=== PATIENT | male | born 1995 | race Caucasian/White ===

== ENCOUNTER 2017-06-07 19:59 | Inpatient (IN) | payer OTHER ==
[~2017-06-07] VITALS: Ht 188 cm; Wt 82.6 kg
[2017-06-07] MEDS ORDERED: VANCOMYCIN IV 1,500 MG in SODIUM CHLORIDE 0.9% 500ML 500 ML IV STA (20:28)
[2017-06-07] MEDS ORDERED: VANCOMYCIN CONSULT ACTIVE PRN ×2 (20:30→22:15)
--- NOTE | 2017-06-07 21:02 | DIAGNOSTIC IMAGING REPORT ---
R TIBIA/FIBULA 2 VIEWS ROUTINE HISTORY: 22 years-old Male RIGHT, LOWER LEG CELLULITIS acute swelling of the right lower leg COMPARISON: None available TECHNIQUE: 2 views of the right tibia and fibula. FINDINGS: There is mild to moderate soft tissue swelling throughout the right lower leg. No opaque foreign body. The bones appear intact without acute fracture, dislocation or erosive changes. No osteochondral defect of the talar dome. No large knee joint effusion. IMPRESSION: Mild to moderate soft tissue swelling of the right lower leg without acute bony abnormality or opaque foreign body. The above report was generated using voice recognition software. It may contain grammatical, syntax or spelling errors. Electronically signed by: Jamie Armijo M.D. 06/07/2017 9:00 PM Dictated Date/Time: 06/07/2017 8:59 PM
[2017-06-07] MEDS ORDERED: SODIUM CHLORIDE 0.9% 1000ML 1,000 ML IV STA (21:12)
[2017-06-07 21:14] LABS: INR 1.1 (0.9-1.1); PTT PATIENT 29.7 SECONDS (21.0-31.0)
[2017-06-07 21:17] LABS: BASO % 0.2 %; BASO ABS # 0.02 K/uL (0-0.2); EOS % 0.6 %; EOS ABS # 0.08 K/uL (0-0.5); HEMATOCRIT 41.7 % (42-52); HEMOGLOBIN 14.9 g/dL (14.0-18.0); IG# 0.12 K/uL (0.00-0.02); LYMPH % 8.3 %; LYMPH ABS # 1.07 K/uL (1.2-3.4); MEAN CELL VOLUME 89.5 fL (80-100); MEAN CORPUSCULAR HGB CONC 35.7 g/dl (32-36); MONO % 9.4 %; NEUT % 80.6 %; NEUT ABS # 10.34 K/uL (1.4-6.5); PLATELET COUNT 153 K/uL (130-400); RED CELL DISTRIBUTION WIDTH CV 12.3 % (11.5-14.5); RED CELL DISTRIBUTION WIDTH SD 39.8 fL (36.4-46.3); WHITE BLOOD COUNT 12.83 K/uL (4.8-10.8)
[2017-06-07 21:20] LABS: CALCIUM 8.9 mg/dl (8.5-10.1); CREATININE 1.23 mg/dl (0.60-1.40); POTASSIUM 4.1 mmol/L (3.5-5.1)
--- NOTE | 2017-06-07 21:57 | EMERGENCY ROOM VISIT NOTE ---
ED Visit Note First contact with patient: 20:05 CHIEF COMPLAINT: Infection of the right leg 4 days HISTORY OF PRESENT ILLNESS: Patient is an otherwise healthy 22-year-old white male, [employer] student, who presents the emergency department for evaluation of right lower leg pain, redness and swelling 3-4 days. Patient relates that he was in [place] for spring. He states that about 4 days ago, he accidentally stepped on some glass with his right foot. He had some pain with weightbearing and was seen by a medical provider who removed a small piece of glass from the area and cleansed the wound. Over the next 1-2 days, he noted worsening pain, swelling and redness initially in the right ankle, which progressively spread up the right lower leg. He was seen by a physician yesterday around 1100 and given a shot of ceftriaxone 1 g and what I suspect is dexamethasone, according to his paperwork. He reports that he did have a fever when he was seen yesterday, temperature was 102F orally. He has not been able to recheck his temperature as he has been traveling, he does report that he has been taking ibuprofen fairly regularly. He returned to the doctor earlier today around 0300 prior to leaving [place] and received an additional ceftriaxone injection. He was not provided with any oral antibiotics. He notes that the leg is worsening, not getting any better. He is unable to bear weight due to pain. He is not aware of any injury to the leg. He reports that he was swimming in pools only, and did not swim in the ocean. He denies any prior history of skin infections or abscesses. The patient denies any personal or family history of DVT or PE. REVIEW OF SYSTEMS: Review of systems as per HPI. All other systems reviewed were negative. 10 systems reviewed. PMH: Electronic medical records are reviewed and summarized as above/below. See Problem List. The patient is otherwise healthy without any chronic medical problems. His tetanus is up-to-date. SOCIAL HISTORY: Patient is a college student originally from [place] who lives in a fraternity house. Positive tobacco and alcohol, does not specify the amount. PHYSICAL EXAM: Vital Signs: Reviewed Nurse's notes. GENERAL: Patient is a well-appearing 22-year-old white male who is awake and alert and in no acute distress. LUNGS: Clear to auscultation and breath sounds equal, no wheezes, rales, or rhonchi. HEART: Regular rate and rhythm without murmurs, ectopy, gallops, or rubs. NEUROLOGICAL: Alert and cooperative. Sensory and motor functions grossly intact. MUSCULOSKELETAL: Examination of the right lower extremity show no obvious knee joint effusion. There is soft tissue swelling around the ankle, but no intra- articular effusion palpable. Knee and ankle range of motion are full. Knee is nontender to palpation. Ankle is tender only medially. Muscle bellies of the calf are soft. The right lower extremity is neurovascularly intact. INTEGUMENTARY: Examination of the right lower extremity, specifically the pretibial area note the skin to be intact, but markedly swollen, tender, erythematous and warm to the touch. The anterior tib-fib region is involved, the posterior calf is spared at this time, but is slightly tender medially. Area involved extends from the ankle to the tibial tuberosity. The knee joint is spared. There is no lymphangitic streaking appreciated into the thigh, but there is some tenderness medially. No lymphadenopathy appreciated. Examination of the plantar aspect of the foot show a callused over puncture wound at the base of the third toe, which is nontender and nonerythematous. EMERGENCY DEPARTMENT COURSE: The patient was seen and examined as above. As stated in the HPI he did receive 2 separate doses of 1 g ceftriaxone while abroad. The patient has no records available for review at our facility. He presents the emergency department with a fairly significant cellulitis of the right lower extremity. IV lock was initiated and laboratory studies were collected. CBC with differential, sed rate, CRP, coags, BMP, blood cultures 2 and [id number] lactic acid were drawn. Tib-fib x-ray was obtained. Ultrasound of the right lower extremity was performed to assess for DVT. The patient was given vancomycin 1500 mg IV empirically. He was hydrated with a liter of normal saline solution. Patient history and presentation were reviewed with attending physician who agreed with the ED workup. Laboratory studies noted a white count of 12,800, with left shift and bandemia. Sed rate and CRP are elevated at 42 and 17.6 respectively. Electrolytes are without correctable abnormality. Renal function is normal. His lactic acid is elevated at 2.5. X-rays of the right tib-fib are negative for acute fracture or bony abnormality. Ultrasound of the right lower extremity was negative for DVT. Reactive lymph nodes noted in the right groin. Blood cultures are pending. Patient was reviewed with the [facility] Hospitalist Service for further care and evaluation. Admission/observation is warranted as he has failed outpatient management of the cellulitis of the right lower extremity. Differential diagnoses also entertained included fracture, sprain, contusion, DVT, superficial thrombophlebitis, abscess, osteomyelitis, necrotizing fasciitis , among others. He is otherwise clinically well-appearing and does not appear septic at this time. Medication reconciliation: I attest that I have personally reviewed the patient' s current medication list. Blood pressure screening : Patient was found to have normal blood pressure on screening and does not require follow-up. DIAGNOSTIC IMAGING: R TIBIA/FIBULA 2 VIEWS ROUTINE HISTORY: 22 years-old Male RIGHT, LOWER LEG CELLULITIS acute swelling of the right lower leg COMPARISON: None available TECHNIQUE: 2 views of the right tibia and fibula. FINDINGS: There is mild to moderate soft tissue swelling throughout the right lower leg. No opaque foreign body. The bones appear intact without acute fracture, dislocation or erosive changes. No osteochondral defect of the talar dome. No large knee joint effusion. IMPRESSION: Mild to moderate soft tissue swelling of the right lower leg without acute bony abnormality or opaque foreign body. R VENOUS DOPP LOWER EXT UNILAT HISTORY: 22 years-old Male RIGHT, EVAL DVT acute right lower extremity pain and swelling COMPARISON: None available TECHNIQUE: Multiple real-time sonographic lower extremity venous structures were obtained assessing grayscale appearance, color and spectral flow FINDINGS: Mildly prominent and enlarged lymph nodes of the right inguinal region are seen, largest of which measure up to 1.1 cm in short axis. There is normal flow, phasicity, compressibility and augmentation of the right lower extremity deep venous structures. Moderate subcutaneous edema about the right calf. IMPRESSION: 1. No sonographic evidence of deep venous thrombosis. 2. Mildly enlarged 1.1 cm right inguinal lymph node suggests reactive etiology. Problem List Surgical Problems: (1) History of nasal surgery Status: Resolved (2) Hx of tonsillectomy Status: Resolved Current/Historical Medications No Active Prescriptions or Reported Meds Allergies Coded Allergies: No Known Allergies (Unverified , 06/07/17) Vital Signs Date Time Temp Pulse Resp B/P (MAP) Pulse Ox O2 Delivery O2 Flow Rate FiO2 06/07/17 21:51 87 18 141/74 100 Room Air 06/07/17 20:03 36.7 102 18 124/76 99 Room Air Laboratory Results 06/07/17 20:36 Red Blood Count 4.66, Mean Corpuscular Volume 89.5, Mean Corpuscular Hemoglobin 32.0, Mean Corpuscular Hemoglobin Concent 35.7, Mean Platelet Volume 12.0, Neutrophils (%) (Auto) 80.6, Lymphocytes (%) (Auto) 8.3, Monocytes (%) (Auto) 9.4, Eosinophils (%) (Auto) 0.6, Basophils (%) (Auto) 0.2, Neutrophils # (Auto) 10.34, Lymphocytes # (Auto) 1.07, Monocytes # (Auto) 1.20, Eosinophils # (Auto) 0.08, Basophils # (Auto) 0.02 06/07/17 20:36 Test 06/07/17 20:36 06/07/17 20:58 White Blood Count 12.83 K/uL (4.8-10.8) Red Blood Count 4.66 M/uL (4.7-6.1) Hemoglobin 14.9 g/dL (14.0-18.0) Hematocrit 41.7 % (42-52) Mean Corpuscular Volume 89.5 fL (80-100) Mean Corpuscular Hemoglobin 32.0 pg (25-34) Mean Corpuscular Hemoglobin Concent 35.7 g/dl (32-36) Platelet Count 153 K/uL (130-400) Mean Platelet Volume 12.0 fL (7.4-10.4) Neutrophils (%) (Auto) 80.6 % Lymphocytes (%) (Auto) 8.3 % Monocytes (%) (Auto) 9.4 % Eosinophils (%) (Auto) 0.6 % Basophils (%) (Auto) 0.2 % Neutrophils # (Auto) 10.34 K/uL (1.4-6.5) Lymphocytes # (Auto) 1.07 K/uL (1.2-3.4) Monocytes # (Auto) 1.20 K/uL (0.11-0.59) Eosinophils # (Auto) 0.08 K/uL (0-0.5) Basophils # (Auto) 0.02 K/uL (0-0.2) RDW Standard Deviation 39.8 fL (36.4-46.3) RDW Coefficient of Variation 12.3 % (11.5-14.5) Immature Granulocyte % (Auto) 0.9 % Immature Granulocyte # (Auto) 0.12 K/uL (0.00-0.02) Erythrocyte Sedimentation Rate 42 mm/hr (0-14) Prothrombin Time 11.3 SECONDS (9.0-12.0) Prothromb Time International Ratio 1.1 (0.9-1.1) Activated Partial Thromboplast Time 29.7 SECONDS (21.0-31.0) Partial Thromboplastin Ratio 1.1 Anion Gap 6.0 mmol/L (3-11) Est Creatinine Clear Calc Drug Dose 101.9 ml/min Estimated GFR () 97.3 Estimated GFR (Non- 84.0 BUN/Creatinine Ratio 21.0 (10-20) Calcium Level 8.9 mg/dl (8.5-10.1) C-Reactive Protein 17.60 mg/dl (0-0.29) Bedside Lactic Acid Venous 2.51 mmol/L (0.90-1.70) Medications Administered Medications (Trade) Dose Ordered Sig/Robson Route Start Time Stop Time Status Last Admin Dose Admin Vancomycin HCl 1500 mg/Sodium Chloride 530 ml @ 200 mls/hr ONE STAT IV 06/07/17 20:28 06/07/17 23:06 06/07/17 20:56 200 MLS/HR Sodium Chloride 1,000 ml @ 999 mls/hr Q1H1M STAT IV 06/07/17 21:12 06/07/17 22:12 DC 06/07/17 21:50 999 MLS/HR Departure Information Impression Primary Impression: Cellulitis of right lower extremity Additional Impression: Failure of outpatient treatment Dispostion Being Evaluated By Hospitalist Prescriptions No Active Prescriptions or Reported Meds Patient Instructions My [facility] Problem Qualifiers
--- NOTE | 2017-06-07 21:59 | DIAGNOSTIC IMAGING REPORT ---
R VENOUS DOPP LOWER EXT UNILAT HISTORY: 22 years-old Male RIGHT, EVAL DVT acute right lower extremity pain and swelling COMPARISON: None available TECHNIQUE: Multiple real-time sonographic lower extremity venous structures were obtained assessing grayscale appearance, color and spectral flow FINDINGS: Mildly prominent and enlarged lymph nodes of the right inguinal region are seen, largest of which measure up to 1.1 cm in short axis. There is normal flow, phasicity, compressibility and augmentation of the right lower extremity deep venous structures. Moderate subcutaneous edema about the right calf. IMPRESSION: 1. No sonographic evidence of deep venous thrombosis. 2. Mildly enlarged 1.1 cm right inguinal lymph node suggests reactive etiology. The above report was generated using voice recognition software. It may contain grammatical, syntax or spelling errors. Electronically signed by: Jamie Armijo M.D. 06/07/2017 9:57 PM Dictated Date/Time: 06/07/2017 9:56 PM
[2017-06-07] MEDS ORDERED: ALUMINUM/MAGNESIUM/SIMETH (MAALOX MAX) 30 ML UDC PO PRN (22:15)
[2017-06-07] MEDS ORDERED: MAGNESIUM HYDROXIDE SUSP 30 ML UDC PO PRN (22:15)
[2017-06-07] MEDS ORDERED: ZOLPIDEM TARTRATE 5 MG TAB PO PRN (22:15)
[2017-06-07] MEDS ORDERED: ONDANSETRON INJ 2 MG/ML 2 ML VIAL IV PRN (22:15)
--- NOTE | 2017-06-07 22:57 | History and Physical ---
History & Physical Date & Time of Service: Jun 07, 2017 at 22:50 Chief Complaint: Infection In R Foot/Leg Primary Care Physician: [facility] History of Present Illness Source: patient 22 years old man with no past medical history was in a trip to [place]. 5 days ago he stepped on glass with his right foot, he said that they remove the glass in [place]. 3 days later he developed fever and swelling and redness in his right lower extremity anterior surface of the genitalia. He had associated fever and fatigue. He denied any pus coming out of his foot but when I was in the room on my exam I was able to squeeze pus out of the foot and consent cultures. Wound appears to be superficial. But there is bright red erythema on the right lower extremity. Patient drinks socially denies any smoking. Denies any underlying diabetes. Social History Smoking Status: Current Some Day Smoker Allergies Coded Allergies: No Known Allergies (Unverified , 06/07/17) Home Medications No Active Prescriptions or Reported Meds Review of Systems Review of system Constitutional: Positive for fever / no chills / no sweats / no weakness / no fatigue Eyes: no blurring of vision / no eye pain / no discharge / no redness ENT: no hearing loss / no epistaxis /no swallowing problems Respiratory: no cough / no wheezing / no SOB / no hemoptysis Cardiovascular: no Chest pain / no lower extremity edema / no palpitation Abdomen: no pain / no nausea / no vomiting / no constipation Musculoskeletal: Right lower extremity pain and swelling, erythema in the anterior border of right chin Genitourinary: no dysuria / no incontinence / no urinary retention Neurologic: no focal weakness / no numbness/tingling / no ataxia Psychiatric: no depression symptoms / no anxiety / no insomnia Endocrine: no excessive thirst / no excessive urination Hematologic: no abnormal bleeding / no bruising / no LN swelling Skin: No rash / no pallor Physical Exam Vital Signs Date Time Temp Pulse Resp B/P (MAP) Pulse Ox O2 Delivery O2 Flow Rate FiO2 06/07/17 21:51 87 18 141/74 100 Room Air 06/07/17 20:03 36.7 102 18 124/76 99 Room Air Physical examination General patient appears to be comfortable, not in acute distress HEENT: Atraumatic , normocephalic /no jaundice /no pallor /anicteric /no dry mucous membrane /normal external ear inspection Neck: Supple /no swelling /central trach Heart: S1/S2 normal/regular rate and rhythm/no gallop /no rub /no murmur Lungs: Clear to auscultation bilaterally/normal chest with expansion/no rhonchi/ no rales/no wheezing/no use of accessory muscles of respiration Abdomen: Soft/nontender/no guarding/no rebound/no organomegaly/no pulsatile mass Musculoskeletal: No swelling/no edema/no tenderness/normal range of motion Neuro exam: Awake alert oriented 3/cranial nerves II through XII appear to be intact/sensation intact/moves all extremities/no abnormal movements Psychiatric evaluation: No depressed mood/normal affect Skin: Small wound on the plantar surface of right foot with past, swelling and erythema in the right lower extremity. Extremity: Normal pulse/no pitting edema/no clubbing or cyanosis Endocrine/lymphatic: No obvious lymphadenopathy /no lymphedema Diagnostics Laboratory Results Results Past 24 Hours Test 06/07/17 20:36 06/07/17 20:58 Range/Units White Blood Count 12.83 4.8-10.8 K/uL Red Blood Count 4.66 4.7-6.1 M/uL Hemoglobin 14.9 14.0-18.0 g/dL Hematocrit 41.7 42-52 % Mean Corpuscular Volume 89.5 80-100 fL Mean Corpuscular Hemoglobin 32.0 25-34 pg Mean Corpuscular Hemoglobin Concent 35.7 32-36 g/dl Platelet Count 153 130-400 K/uL Mean Platelet Volume 12.0 7.4-10.4 fL Neutrophils (%) (Auto) 80.6 % Lymphocytes (%) (Auto) 8.3 % Monocytes (%) (Auto) 9.4 % Eosinophils (%) (Auto) 0.6 % Basophils (%) (Auto) 0.2 % Neutrophils # (Auto) 10.34 1.4-6.5 K/uL Lymphocytes # (Auto) 1.07 1.2-3.4 K/uL Monocytes # (Auto) 1.20 0.11-0.59 K/uL Eosinophils # (Auto) 0.08 0-0.5 K/uL Basophils # (Auto) 0.02 0-0.2 K/uL RDW Standard Deviation 39.8 36.4-46.3 fL RDW Coefficient of Variation 12.3 11.5-14.5 % Immature Granulocyte % (Auto) 0.9 % Immature Granulocyte # (Auto) 0.12 0.00-0.02 K/uL Erythrocyte Sedimentation Rate 42 0-14 mm/hr Prothrombin Time 11.3 9.0-12.0 SECONDS Prothromb Time International Ratio 1.1 0.9-1.1 Activated Partial Thromboplast Time 29.7 21.0-31.0 SECONDS Partial Thromboplastin Ratio 1.1 Sodium Level 131 136-145 mmol/L Potassium Level 4.1 3.5-5.1 mmol/L Chloride Level 96 98-107 mmol/L Carbon Dioxide Level 30 21-32 mmol/L Anion Gap 6.0 3-11 mmol/L Blood Urea Nitrogen 26 7-18 mg/dl Creatinine 1.23 0.60-1.40 mg/dl Est Creatinine Clear Calc Drug Dose 101.9 ml/min Estimated GFR () 97.3 Estimated GFR (Non- 84.0 BUN/Creatinine Ratio 21.0 10-20 Random Glucose 116 70-99 mg/dl Calcium Level 8.9 8.5-10.1 mg/dl C-Reactive Protein 17.60 0-0.29 mg/dl Bedside Lactic Acid Venous 2.51 0.90-1.70 mmol/L Microbiology Results 06/07/17 Blood Culture, Received Pending 06/07/17 Blood Culture, Received Pending 06/07/17 Gram Stain, Received Pending 06/07/17 Wound Culture, Received Pending Impression Assessment and Plan 22-year-old man with no significant past medical history, stepped on a small piece of glass in [place], had a small wound in his right foot, 3 days later developed severe cellulitis in the right lower extremity. Patient is up-to- date with his tetanus vaccine. Assessment Sepsis present on admission secondary to below Right foot abscess, small superficial I&D at bedside Right lower extremity cellulitis Plan Blood cultures, wound cultures were sent Status post bedside I&D of right foot. Consult orthopedic. Ordered CT right lower extremity with and without contrast rule out necrotizing fasciitis or abscess IV fluid hydration Admit patient to MedSurg Heparin for DVT prophylaxis Lower extremity appears to be bright red suggestive of Streptococcus, will start patient on ceftriaxone streptococcal treatment dose 2 g IV daily, also will cover staph with vancomycin. Lactobacillus for C. difficile prophylaxis. Erythema has been demarcated. Resuscitation Status VTE Prophylaxis Will order VTE Prophylaxis: Yes
[2017-06-07] MEDS ORDERED: OPTIRAY 320 IV PRN (23:00)
--- NOTE | 2017-06-07 23:18 | DIAGNOSTIC IMAGING REPORT ---
LOWER EXTREMITY WITH HISTORY: 22 years-old Male cellulitis in foot and tibia, from right foot to blew knee acute swelling with cellulitis of the right lower leg COMPARISON: Right tibia and fibula radiographs of same day TECHNIQUE: Multiple axial CT images of the right lower extremity were obtained following the intravenous administration of 93 mL Optiray 320 IV contrast. Coronal and sagittal reformatted images were obtained from the axial data set and were submitted for review. A dose lowering technique was used consistent with the principals of ALARA. FINDINGS: Evaluation of the bony structures demonstrates a 4 mm bone island of the intercondylar distal femur. Bone mineralization is within normal limits. There is no acute fracture or dislocation. No periostitis or erosive changes identified. No osteochondral defect. Type I accessory navicular noted on the right with type II accessory navicular on the left. Bipartite medial hallux sesamoid on the right. Midfoot alignment appears anatomic. No evidence of tarsal coalition on these images. Evaluation of the soft tissues demonstrates three-vessel arterial flow to the level of the ankle. There is moderate subcutaneous and deep tissue edema about the lower leg with associated mild skin thickening. No drainable fluid collections or foreign bodies identified. Soft tissue edema tracks along the myofascial planes of the anterior and posterior compartments about the leg. No intramuscular abscess identified. Imaged flexor and extensor tendons about the ankle appear grossly intact. Trace Tate's cyst. No large joint effusion identified. IMPRESSION: 1. Moderate subcutaneous and deep tissue edema with skin thickening about the lower leg suggests cellulitis with lymphedema or venous stasis additional differential considerations. No drainable fluid collections or abscess identified. 2. No acute bony abnormality. The above report was generated using voice recognition software. It may contain grammatical, syntax or spelling errors. Electronically signed by: Jamie Armijo M.D. 06/07/2017 11:17 PM Dictated Date/Time: 06/07/2017 11:05 PM
[2017-06-07 23:28] VITALS: O2SAT 99
[2017-06-07 23:40] VITALS: BP 130/72; PULSE 85; TEMP 38.2; O2SAT 100
[2017-06-08] VITALS: BP 130/72; PULSE 85; TEMP 38.2; Ht 188 cm; Wt 82.6 kg
[2017-06-08] MEDS ORDERED: ACETAMINOPHEN 325 MG TAB PO PRN (00:15)
[2017-06-08] MEDS: ACETAMINOPHEN 325 MG TAB PO PRN ×3 (00:16→17:36)
[2017-06-08] MEDS: CEFTRIAXONE SOD INJ 2,000 MG in DEXTROSE 5% 50ML 50 ML IV SCH (00:16)
[2017-06-08] MEDS: ENOXAPARIN 40 MG/0.4 ML SYR SQ SCH ×2 (01:10→20:03)
[2017-06-08 01:13] VITALS: TEMP 37.6
[2017-06-08] MEDS: VANCOMYCIN IV 1,250 MG in SODIUM CHLORIDE 0.9% 250ML 250 ML IV SCH ×3 (04:46→20:03)
[2017-06-08 07:00] LABS: BASO % 0.2 %; BASO ABS # 0.02 K/uL (0-0.2); EOS % 0.4 %; EOS ABS # 0.04 K/uL (0-0.5); HEMATOCRIT 36.9 % (42-52); HEMOGLOBIN 12.9 g/dL (14.0-18.0); IG# 0.05 K/uL (0.00-0.02); LYMPH % 12.9 %; LYMPH ABS # 1.23 K/uL (1.2-3.4); MEAN CELL VOLUME 90.4 fL (80-100); MEAN CORPUSCULAR HEMOGLOBIN 31.6 pg (25-34); MEAN PLATELET VOLUME 10.9 fL (7.4-10.4); MONO % 11.4 %; MONO ABS # 1.09 K/uL (0.11-0.59); NEUT % 74.6 %; NEUT ABS # 7.09 K/uL (1.4-6.5); PLATELET COUNT 110 K/uL (130-400); RED CELL DISTRIBUTION WIDTH CV 12.4 % (11.5-14.5); RED CELL DISTRIBUTION WIDTH SD 40.7 fL (36.4-46.3); WHITE BLOOD COUNT 9.52 K/uL (4.8-10.8)
[2017-06-08 07:41] VITALS: BP 99/66; PULSE 78; TEMP 37.4; O2SAT 100
[2017-06-08 07:45] LABS: ALBUMIN 2.5 gm/dl (3.4-5.0); CALCIUM 8.4 mg/dl (8.5-10.1); CREATININE 0.9 mg/dl (0.60-1.40); PHOSPHORUS 3.2 mg/dl (2.5-4.9); POTASSIUM 3.5 mmol/L (3.5-5.1)
[2017-06-08] MEDS ORDERED: LACTOBACILLUS ACIDOPHILUS (FLORANEX) TAB PO SCH (08:00)
[2017-06-08] MEDS: LACTOBACILLUS ACIDOPHILUS (FLORANEX) TAB PO SCH ×3 (08:20→17:56)
--- NOTE | 2017-06-08 08:44 | Family Medicine Progress Note ---
Progress Note Date of Service Jun 08, 2017. Subjective Pt evaluation today including: conversation w/ patient Found patient sitting upright in his bed. Describes recent events as per HPI leading to this hospitalization. Presently says his pain is controlled and that the leg feels sore with some mild pressure from the swelling. Fever overnight but says feels like it resolved. No other acute c/o. Constitutional: + fever, No chills Respiratory: No cough, No shortness of breath Cardiovascular: + edema (RLE), No chest pain Abdomen: No pain, No nausea, No vomiting, No diarrhea Musculoskeletal: + swelling (right calf) Male : No dysuria Skin: + rash (leg erythema) Medications Current Inpatient Medications Medications (Trade) Dose Ordered Sig/Robson Route Start Time Stop Time Status Last Admin Dose Admin Enoxaparin Sodium (Lovenox Inj) 40 mg DAILY@2100 SQ 06/08/17 00:00 07/08/17 00:00 06/08/17 01:10 40 MG Acetaminophen (Tylenol Tab) 650 mg Q4H PRN PO 06/07/17 22:15 07/07/17 22:14 06/08/17 00:16 650 MG Al Hydrox/Mg Hydrox/Simethicone (Maalox Max Susp) 15 ml Q4H PRN PO 06/07/17 22:15 07/07/17 22:14 Magnesium Hydroxide (Milk Of Magnesia Susp) 30 ml Q6H PRN PO 06/07/17 22:15 07/07/17 22:14 Zolpidem Tartrate (Ambien Tab) 5 mg HSZ PRN PO 06/07/17 22:15 07/07/17 22:14 Ondansetron HCl (Zofran Inj) 4 mg Q6H PRN IV 06/07/17 22:15 07/07/17 22:14 Lactobacillus Acidophilus (Floranex Tab) 4 tab TIDM PO 06/08/17 08:30 07/08/17 08:29 06/08/17 08:20 4 TAB Vancomycin HCl 1250 mg/Sodium Chloride 275 ml @ 125 mls/hr Q8H IV 06/08/17 05:00 06/18/17 04:59 06/08/17 04:46 125 MLS/HR Miscellaneous Information (Consult) 1 ea UD PRN N/A 06/07/17 22:15 07/07/17 22:14 Ceftriaxone Sodium 2000 mg/ Dextrose 70 ml @ 100 mls/hr Q24H IV 06/08/17 00:00 06/18/17 00:00 06/08/17 00:16 100 MLS/HR Ioversol (Optiray 320) 100 ml UD PRN IV 06/07/17 23:00 06/11/17 22:59 Oxycodone HCl (Roxicodone Immediate Rel Tab) 5 mg Q4H PRN PO 06/08/17 00:15 06/22/17 00:14 Objective Vital Signs Date Time Temp Pulse Resp B/P (MAP) Pulse Ox O2 Delivery O2 Flow Rate FiO2 06/08/17 07:41 37.4 78 16 99/66 (77) 100 Room Air 06/08/17 01:13 37.6 06/08/17 00:00 Room Air 06/08/17 00:00 38.2 85 15 130/72 Room Air 06/07/17 23:40 38.2 85 15 130/72 (91) 100 Room Air 06/07/17 23:28 82 18 132/67 99 06/07/17 21:51 87 18 141/74 100 Room Air 06/07/17 20:03 36.7 102 18 124/76 99 Room Air Physical Exam Notes: General Appearance: Awake, alert & oriented, comfortable in general, NAD. CV: +S1S2 RRR, no murmur. Generalized edema of right leg approx 2/3 up spears. Pulm: Clear to auscultation throughout. Abdomen: +BS, soft, non-tender, non-distended. Extremities: Erythema approx 2/3 up right spears, below demarcation line of 10Mar , but sparing the foot. Focal warmth and mild ttp. Calf not overtly ttp and not tense. Able to range right ankle and toes with minimal discomfort. Distal extremity strength 5/5 and sensation equal/intact. Neuro: See RLE above. No gross neuro deficits. Lines: Left PIV. Laboratory Results 06/08/17 06:34 Red Blood Count 4.08, Mean Corpuscular Volume 90.4, Mean Corpuscular Hemoglobin 31.6, Mean Corpuscular Hemoglobin Concent 35.0, Mean Platelet Volume 10.9, Neutrophils (%) (Auto) 74.6, Lymphocytes (%) (Auto) 12.9, Monocytes (%) (Auto) 11.4, Eosinophils (%) (Auto) 0.4, Basophils (%) (Auto) 0.2, Neutrophils # (Auto ) 7.09, Lymphocytes # (Auto) 1.23, Monocytes # (Auto) 1.09, Eosinophils # (Auto ) 0.04, Basophils # (Auto) 0.02 06/08/17 06:34 Test 06/07/17 20:36 06/07/17 20:58 06/08/17 06:34 Erythrocyte Sedimentation Rate 42 mm/hr (0-14) Prothrombin Time 11.3 SECONDS (9.0-12.0) Prothromb Time International Ratio 1.1 (0.9-1.1) Activated Partial Thromboplast Time 29.7 SECONDS (21.0-31.0) Partial Thromboplastin Ratio 1.1 C-Reactive Protein 17.60 mg/dl (0-0.29) Bedside Lactic Acid Venous 2.51 mmol/L (0.90-1.70) White Blood Count 9.52 K/uL (4.8-10.8) Red Blood Count 4.08 M/uL (4.7-6.1) Hemoglobin 12.9 g/dL (14.0-18.0) Hematocrit 36.9 % (42-52) Mean Corpuscular Volume 90.4 fL (80-100) Mean Corpuscular Hemoglobin 31.6 pg (25-34) Mean Corpuscular Hemoglobin Concent 35.0 g/dl (32-36) Platelet Count 110 K/uL (130-400) Mean Platelet Volume 10.9 fL (7.4-10.4) Neutrophils (%) (Auto) 74.6 % Lymphocytes (%) (Auto) 12.9 % Monocytes (%) (Auto) 11.4 % Eosinophils (%) (Auto) 0.4 % Basophils (%) (Auto) 0.2 % Neutrophils # (Auto) 7.09 K/uL (1.4-6.5) Lymphocytes # (Auto) 1.23 K/uL (1.2-3.4) Monocytes # (Auto) 1.09 K/uL (0.11-0.59) Eosinophils # (Auto) 0.04 K/uL (0-0.5) Basophils # (Auto) 0.02 K/uL (0-0.2) RDW Standard Deviation 40.7 fL (36.4-46.3) RDW Coefficient of Variation 12.4 % (11.5-14.5) Immature Granulocyte % (Auto) 0.5 % Immature Granulocyte # (Auto) 0.05 K/uL (0.00-0.02) Anion Gap 7.0 mmol/L (3-11) Est Creatinine Clear Calc Drug Dose 152.3 ml/min Estimated GFR () 142.0 Estimated GFR (Non- 122.5 BUN/Creatinine Ratio 17.8 (10-20) Calcium Level 8.4 mg/dl (8.5-10.1) Phosphorus Level 3.2 mg/dl (2.5-4.9) Magnesium Level 1.8 mg/dl (1.8-2.4) Total Bilirubin 0.7 mg/dl (0.2-1) Aspartate Amino Transf (AST/SGOT) 62 U/L (15-37) Alanine Aminotransferase (ALT/SGPT) 63 U/L (12-78) Alkaline Phosphatase 70 U/L (45-117) Total Protein 6.0 gm/dl (6.4-8.2) Albumin 2.5 gm/dl (3.4-5.0) Globulin 3.5 gm/dl (2.5-4.0) Albumin/Globulin Ratio 0.7 (0.9-2) Assessment and Plan 22 yo male admitted on [id number] for right leg cellulitis s/p stepping on glass in [place] around 05Mar. PMH: None. Right lower extremity cellulitis: Patient notes unsuccessful initial treatment in [place] with unknown medications. Here, CT and u/s of RLE noted edema but no abscess or DVT. S/p foot I&D here. 10Mar BCx x 2 and Wound Cx pending. 10Mar started empirically on Ceftriaxone and Vancomycin to cover for staph & strep. Tylenol prn and Roxycodone prn, pain currently controlled. Last fever 10Mar. WBC 12 -> 9. Vitals stable. Ortho on consult. Elevated AST: AST 62. No comparison available. Code status: Full code Diet: Regular. DVT prophy: Lovenox. PT/OT: Deferred. Disbo: Admit to med/surg. Resident Physician Supervision Note: I interviewed and examined the patient. Discussed with Dr. Whitman and agree with findings and plan as documented in the note. Any exceptions or clarifications are listed here: None This patient is doing well he is market swelling of his right leg and some erythema to the mid spears area there is a small puncture wound at the plantar aspect of his foot at the base of his second to third toe there is no additional purulence able to be expressed today and there is no abscess seen on imaging of his leg Vital signs show him to be afebrile otherwise are stable his white blood cell count is reduced from 12,000 and 9000 he remains on vancomycin and Rocephin preliminary cultures of the purulent material expressed from his foot are with gram-positive cocci This patient is here with a right lower extremity sialitis from a puncture wound with consideration for staph or strep. Will maintain his antibiotic coverage until sensitivities return and remain on enoxaparin for DVT prevention Documented By: Phil Garcia Resident Tracking Resident Involvement: Resident Care Provided Care Provided: Adult Hospital Medicine (inpatient)
--- NOTE | 2017-06-08 14:56 | ORTHOPEDIC CONSULTATION ---
DATE OF CONSULTATION: 06/08/2017 HISTORY OF PRESENT ILLNESS: This is a 22-year-old gentleman who was on spring break vacation in [facility]. Approximately 5 days ago, he stepped on some glass with his right foot and was seen by care provider in [place]. He stated that they removed the glass while in [place]. Two days later, he developed fever and swelling, and redness in his right lower extremity. He has pain with weightbearing. He had the wound cleansed by the care provider. Over 1-2 days, he noticed worsening pain, swelling and redness initially in the right ankle, which then spread proximally into the right lower leg along the medial aspect and then extending proximally. He was seen by another physician in [place] on June 06 around 11:00 a.m. given a shot of ceftriaxone 1 gram and likely dexamethasone, according to the paperwork provided. He was feverish yesterday, temperature was 102 degrees Fahrenheit orally. He was then traveling back to [facility]. He has been taking ibuprofen to manage with the fever and discomfort. He returned of doctor approximately 0300 prior to leaving [place] and received an additional ceftriaxone injection. He was not given any oral antibiotics even that his leg was getting worse, unable to bear weight due to pain. He notes he did not swim in the ocean, he was in swimming pool areas at his resort. No prior skin infections or abscesses. No history of DVT. PAST MEDICAL HISTORY: Denies. PAST SURGICAL HISTORY: Denies. ALLERGIES: No known drug allergies. MEDICATIONS: 1. Ibuprofen p.r.n. fever and pain. 2. Ceftriaxone injections x2. Currently, on vancomycin. SOCIAL HISTORY: He drinks alcohol socially. He smokes cigarettes socially and uses snuff lip tobacco, semiregularly. Denies significant drug use. 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 He is from [place], [place]. He is a sophomore at [employer]. He is single. PHYSICAL EXAMINATION: GENERAL: This is a 22-year-old student is lying supine in his hospital room bed. He is alert and oriented x3. Speech clear and fluent. Affect is appropriate. Respirations are normal and regular. ABDOMEN: Soft, nontender, nondistended. EXTREMITIES: The right lower extremity has a scalded skin appearance from the proximal medial hindfoot extending proximally and then up to a line of demarcation noted inferior to the tibial tubercle, both medially and laterally; however, there is increased tenderness to palpation along the medial and medial anterior aspect of the right lower extremity. There are no fluid collections or fluid coalescence. No abscess palpated. He had discomfort along the plantar and flexor surface of the right lower extremity with tenderness primarily over the posterior tibial tendon, flexor digitorum longus tendons. No significant tenderness over the Achilles. There is a punctate healing scabbed area at the base of his third toe, which appears to be benign and is nontender to palpation. He has no tenderness in the plantar midfoot along the flexor tendons. He has no pain with passive extension of the third toe. He has a 4/5 strength for dorsiflexion, plantar flexion, inversion, eversion on the right compared to 5/5 strength for dorsiflexion, plantar flexion, inversion on the left due to pain. He has edema of the right lower extremity, 2/4, pitting. Left lower extremity, no edema noted. Dorsalis pedis and posterior pulses are palpable, 2/4 symmetric bilaterally. LABORATORY DATA: C-reactive protein 17.6, sed rate 42. White blood count 12.83, hemoglobin 14.9, hematocrit 41.7, and platelet count 153. IMAGING DATA: CT scan reviewed - no evidence of abscess or drainable fluid collection. Ultrasound reviewed - no evidence of deep venous thrombosis, no evidence of abscess or deep fluid collection. Radiographs reviewed - mild to moderate soft tissue swelling, right lower leg. No fractures, no foreign bodies, no evidence of osteomyelitis. IMPRESSION: Right lower extremity cellulitis, likely secondary to plantar third toe puncture. RECOMMENDATIONS: Continue IV vancomycin. We will continue to monitor with you. No evidence for need for surgical intervention at this time. Thank for the opportunity to consult in the care of this patient.
[2017-06-08 15:18] VITALS: BP 114/65; PULSE 69; TEMP 37; O2SAT 97
[2017-06-08] MEDS: OXYCODONE HCL IR 5 MG TAB (IMMEDIATE RELEASE) PO PRN ×2 (15:33→22:20)
[2017-06-08 23:40] VITALS: BP 107/61; PULSE 77; TEMP 37.1; O2SAT 97
[2017-06-09] MEDS: CEFTRIAXONE SOD INJ 2,000 MG in DEXTROSE 5% 50ML 50 ML IV SCH (00:13)
[2017-06-09] MEDS ORDERED: VANCOMYCIN TROUGH ONE (04:30)
[2017-06-09] MEDS: VANCOMYCIN IV 1,250 MG in SODIUM CHLORIDE 0.9% 250ML 250 ML IV SCH ×4 (05:11→21:33)
[2017-06-09 05:13] LABS: CREATININE 0.91 mg/dl (0.60-1.40)
[2017-06-09] MEDS: OXYCODONE HCL IR 5 MG TAB (IMMEDIATE RELEASE) PO PRN ×5 (05:16→22:41)
[2017-06-09 07:08] VITALS: BP 107/57; PULSE 76; TEMP 37; O2SAT 98
[2017-06-09] MEDS: ACETAMINOPHEN 325 MG TAB PO PRN ×3 (07:34→23:33)
[2017-06-09] MEDS: LACTOBACILLUS ACIDOPHILUS (FLORANEX) TAB PO SCH ×3 (09:29→18:10)
[2017-06-09] MEDS ORDERED: PIPERACILL/TAZOBAC CONSULT ACTIVE PRN (09:45)
--- NOTE | 2017-06-09 09:47 | Family Medicine Progress Note ---
Progress Note Date of Service Jun 09, 2017. Subjective Pt describes having been in [place] on vacation at a resort, suffering trauma to the right plantar foot -- glass -- being treated in [place] with shots of antibiotic and steroids apparently, then [facility] came immediately to the hospital. Pain is persistent, requiring scheduled roxicodone. otherwise feeling well, eating drinking well, denies pain anywhere else. Denies constipation. ROS See HPI for pertinent positives and negatives. Objective Vital Signs Date Time Temp Pulse Resp B/P (MAP) Pulse Ox O2 Delivery O2 Flow Rate FiO2 06/09/17 15:36 37.6 71 18 98/47 (64) 97 Room Air 06/09/17 07:20 Room Air 06/09/17 07:08 37.0 76 16 107/57 (74) 98 Room Air 06/09/17 00:00 Room Air 06/08/17 23:40 37.1 77 16 107/61 (76) 97 Room Air Physical Exam Notes: GENERAL: Awake, alert, well-appearing, in no distress EYES: Normal conjunctiva. Sclera non-icteric. RESPIRATORY: Clear to auscultation. CARDIAC: Regular rate, normal rhythm. Extremities warm and well perfused. Pulses equal. ABDOMEN: Soft, non-distended. No tenderness to palpation. No rebound or guarding. No masses. LOWER EXTREMITIES: Rt calf is erythematous, swollen, painful. Neurovascularly in tact bilaterally. NEURO: No motor deficits noted. SKIN: No rash or jaundice noted. Laboratory Results 06/09/17 04:50 Test 06/09/17 04:50 Est Creatinine Clear Calc Drug Dose 150.6 ml/min Estimated GFR () 140.1 Estimated GFR (Non- 120.9 Vancomycin Level Trough 6.5 mcg/ml (SEE COMMENT) Assessment and Plan 22 yo male admitted on [id number] for right leg cellulitis s/p stepping on glass in [place] around 05Mar. PMH: None. Right lower extremity cellulitis: - Patient notes unsuccessful initial treatment in [place] with unknown medications. Here, CT and u/s of RLE noted edema but no abscess or DVT. S/p foot I&D here. 10Mar BCx NGTD x 2 and Wound Cx prelim staph aureus and GAS. 10Mar started empirically on Ceftriaxone and Vancomycin to cover for staph & strep --> changed to Vanc and zosyn to cover for anaerobe. Tylenol prn and Roxycodone prn, --> added ibuprofen 600mg q6h. Last fever 10Mar. WBC 12 -> 9. Vitals stable. Ortho consulted -- no indication for intervention at this time. No s/s compartment syndrome. Elevated AST: AST 62. No comparison available. consider hepatitis panel Code status: Full code Diet: Regular. DVT prophy: Lovenox. PT/OT: Deferred. Disbo: Admit to med/surg. Continued [facility] stay due to: multiple IV medications needed Discharge planning: home Resident Tracking Resident Involvement: Resident Care Provided Care Provided: Adult Hospital Medicine Reviewed: Pt Seen/Exam by Me History right leg redness - seems to extending in the back of the leg pain continues in the leg Constitutional: denies: fever Respiratory: negative: short of breath Cardiovascular: denies chest pain General Appearance: no apparent distress Respiratory: no respiratory distress Extremities: other (right leg - erythema in anterior leg. milder erythema in posterior leg extending upto the lower thigh) Neurologic/Psychiatric: alert, oriented x 3 Assessment/Plan Resident Physician Supervision Note: I independently interviewed and examined the patient and verified the kinney history and physical, reviewed labs and image studies, discussed the case with the resident Dr. Bush and agree with the findings and care plan.
[2017-06-09] MEDS ORDERED: PIPERACILL/TAZOBAC IV 3.375 GM in DEXTROSE 5% 100ML IV ONE (10:00)
--- NOTE | 2017-06-09 10:11 | Pharmacy Progress Note ---
Pharmacy Antibiotic Prog Note Date of Service Jun 09, 2017. Subjective The patient is currently receiving vancomycin 1250 mg IV every 8 hours. The patient is currently on day # 3 of vancomycin IV therapy. Objective Height (Feet): 6 Height (Inches): 2.00 Weight (Kilograms): 82.600 Lab Results (24hrs): Test 06/09/17 04:50 Creatinine 0.91 mg/dl (0.60-1.40) Est Creatinine Clear Calc Drug Dose 150.6 ml/min Estimated GFR () 140.1 Estimated GFR (Non- 120.9 Vancomycin Level Trough 6.5 mcg/ml (SEE COMMENT) Assessment & Plan Assessment * 22 yo M with sepsis 2nd purulent cellulitis from stepping on glass in [place]. Developed fever with swelling and redness of leg prior to arrival * WBC trending down and patient is no longer febrile * No significant PMH * Antibiotics * Broadened today - was on ceftriaxone and vancomycin. Now on Zosyn and vancomycin. * Zosyn day 1, vancomycin day 3 * Cultures * Heel culture with Staph aureus and Strep species * Renal * SCr stable and likely at/near baseline Vancomycin * Goal trough ~15 mcg/mL. Can usually target lower for cellulitis, but would like higher trough for now * Trough level this AM was subtherapeutic at 6.5 mcg/mL. Target trough time was 8 hour level, but this was a 9 hour level. Despite this, an 8 hour level would still not be therapeutic * Will decrease interval from q8h to q6h * Repeat trough in 24 hours, prior to 5th dose of new regimen Plan * Increase vancomycin to 1250 mg IV q6h * Trough 06/10 @ 0330 Pharmacy will continue to follow and will adjust dose/frequency as necessary. Thank you
--- NOTE | 2017-06-09 10:54 | Orthopedic Progress Note ---
Orthopedic Progress Note Date of Service Jun 09, 2017. Subjective Reports: feeling well, Denies: chest pain, SOB, nausea / vomiting, light headedness, calf pain Additional Notes: SLIGHT IMPROVEMENT BUT OVERALL STILL MODERATELY UNCOMFORTABLE. CURRENTLY ON VANCO Objective calves soft nontender, N/V intact, capillary refill less than 2 sec., A&O x3, toes mobile STILL WITH MODERATE ERYTHEMA OVER THE ANTERIOR TIBIA. DOES NOT EXCEED THE PREVIOUS DEMARCATION. CALF MILDLY TENDER BUT NOT RED. FOOT WITH MINIMAL SWELLING PUNCTURE WOUND APPEARS CLEAN, NO ERYTHEMA, NO DRAINAGE. Date Time Temp Pulse Resp B/P (MAP) Pulse Ox O2 Delivery O2 Flow Rate FiO2 06/09/17 07:20 Room Air 06/09/17 07:08 37.0 76 16 107/57 (74) 98 Room Air 06/09/17 00:00 Room Air 06/08/17 23:40 37.1 77 16 107/61 (76) 97 Room Air 06/08/17 15:30 Room Air 06/08/17 15:18 37.0 69 16 114/65 (81) 97 Room Air Assessment & Plan Assessment: CELLULITIS RLE Plan: CONTINUE ELEVATION AND ZOSYN. ANTIBIOTIC JUST SWITCHED THIS AM, HOPEFULLY WILL GET MORE OF A RESPONSE. IMAGING SHOWS NO OBVIOUS FLUID COLLECTIONS OR ABSCESS. NO NEED FOR SURGICAL INTERVENTION AT THIS TIME. ORTHOPEDICS WILL SIGN OFF.
--- NOTE | 2017-06-09 11:00 | Consultant Recommendations ---
Special Needs Babysitter Recommendations Date of Service Jun 09, 2017. Special Needs Babysitter Recommendations CONTINUE ELEVATION RLE CONTINUE ANTIBIOTICS RECOMMEND BY PRIMARY SERVICE MONITOR FOR INCREASED REDNESS, SWELLING, FEVER, CHILLS, DRAINAGE. CAN FOLLOW UP WITH ORTHO PRN. DOES NOT NEED SCHEDULED FOLLOW UP.
[2017-06-09] MEDS ORDERED: PIPERACILL/TAZOBAC IV 3.375 GM in DEXTROSE 5% 100ML 100 ML IV SCH (12:00)
[2017-06-09 15:36] VITALS: BP 98/47; PULSE 71; TEMP 37.6; O2SAT 97
[2017-06-09] MEDS: PIPERACILL/TAZOBAC IV 3.375 GM in DEXTROSE 5% 100ML IV SCH (15:55)
[2017-06-09] MEDS: ENOXAPARIN 40 MG/0.4 ML SYR SQ SCH (21:34)
[2017-06-09] MEDS: IBUPROFEN 600 MG TAB PO PRN (21:34)
[2017-06-09 22:44] VITALS: BP 103/58; PULSE 60; TEMP 36.5; O2SAT 97
[2017-06-10] MEDS: PIPERACILL/TAZOBAC IV 3.375 GM in DEXTROSE 5% 100ML IV SCH ×4 (00:06→23:21)
[2017-06-10] MEDS ORDERED: VANCOMYCIN TROUGH ONE (03:30)
[2017-06-10 04:03] LABS: BASO % 0.3 %; BASO ABS # 0.03 K/uL (0-0.2); EOS % 2.3 %; HEMATOCRIT 37.5 % (42-52); HEMOGLOBIN 12.5 g/dL (14.0-18.0); IG# 0.03 K/uL (0.00-0.02); LYMPH % 24.1 %; LYMPH ABS # 2.13 K/uL (1.2-3.4); MEAN CELL VOLUME 92.8 fL (80-100); MEAN CORPUSCULAR HEMOGLOBIN 30.9 pg (25-34); MEAN CORPUSCULAR HGB CONC 33.3 g/dl (32-36); MEAN PLATELET VOLUME 11.2 fL (7.4-10.4); MONO % 16.8 %; MONO ABS # 1.48 K/uL (0.11-0.59); NEUT % 56.2 %; NEUT ABS # 4.96 K/uL (1.4-6.5); PLATELET COUNT 142 K/uL (130-400); RED CELL DISTRIBUTION WIDTH CV 12.3 % (11.5-14.5); RED CELL DISTRIBUTION WIDTH SD 41.9 fL (36.4-46.3); WHITE BLOOD COUNT 8.83 K/uL (4.8-10.8)
[2017-06-10] MEDS: VANCOMYCIN IV 1,250 MG in SODIUM CHLORIDE 0.9% 250ML 250 ML IV SCH ×4 (04:17→21:53)
[2017-06-10] MEDS: OXYCODONE HCL IR 5 MG TAB (IMMEDIATE RELEASE) PO PRN ×4 (04:18→21:18)
[2017-06-10 04:23] LABS: CREATININE 0.87 mg/dl (0.60-1.40)
[2017-06-10 07:24] VITALS: BP 101/61; PULSE 47; TEMP 36.4; O2SAT 99
[2017-06-10 07:54] LABS: ALBUMIN 2.2 gm/dl (3.4-5.0); TOTAL PROTEIN 5.8 gm/dl (6.4-8.2)
[2017-06-10] MEDS: ACETAMINOPHEN 325 MG TAB PO PRN ×3 (08:08→21:19)
[2017-06-10] MEDS: LACTOBACILLUS ACIDOPHILUS (FLORANEX) TAB PO SCH ×3 (08:09→17:36)
--- NOTE | 2017-06-10 08:55 | Pharmacy Progress Note ---
Pharmacy Antibiotic Prog Note Date of Service Jun 10, 2017. Subjective The patient is currently receiving vancomycin 1250 mg IV every 6 hours. The patient is currently on day # 4 of vancomycin IV therapy. Objective Height (Feet): 6 Height (Inches): 2.00 Weight (Kilograms): 82.600 Lab Results (24hrs): Test 06/10/17 03:39 White Blood Count 8.83 K/uL (4.8-10.8) Red Blood Count 4.04 M/uL (4.7-6.1) Hemoglobin 12.5 g/dL (14.0-18.0) Hematocrit 37.5 % (42-52) Mean Corpuscular Volume 92.8 fL (80-100) Mean Corpuscular Hemoglobin 30.9 pg (25-34) Mean Corpuscular Hemoglobin Concent 33.3 g/dl (32-36) Platelet Count 142 K/uL (130-400) Mean Platelet Volume 11.2 fL (7.4-10.4) Neutrophils (%) (Auto) 56.2 % Lymphocytes (%) (Auto) 24.1 % Monocytes (%) (Auto) 16.8 % Eosinophils (%) (Auto) 2.3 % Basophils (%) (Auto) 0.3 % Neutrophils # (Auto) 4.96 K/uL (1.4-6.5) Lymphocytes # (Auto) 2.13 K/uL (1.2-3.4) Monocytes # (Auto) 1.48 K/uL (0.11-0.59) Eosinophils # (Auto) 0.20 K/uL (0-0.5) Basophils # (Auto) 0.03 K/uL (0-0.2) RDW Standard Deviation 41.9 fL (36.4-46.3) RDW Coefficient of Variation 12.3 % (11.5-14.5) Immature Granulocyte % (Auto) 0.3 % Immature Granulocyte # (Auto) 0.03 K/uL (0.00-0.02) Creatinine 0.87 mg/dl (0.60-1.40) Est Creatinine Clear Calc Drug Dose 157.5 ml/min Estimated GFR () 144.0 Estimated GFR (Non- 124.2 Total Bilirubin 0.5 mg/dl (0.2-1) Direct Bilirubin 0.1 mg/dl (0-0.2) Aspartate Amino Transf (AST/SGOT) 37 U/L (15-37) Alanine Aminotransferase (ALT/SGPT) 79 U/L (12-78) Alkaline Phosphatase 76 U/L (45-117) Total Protein 5.8 gm/dl (6.4-8.2) Albumin 2.2 gm/dl (3.4-5.0) Vancomycin Level Trough 14.6 mcg/ml (SEE COMMENT) Assessment & Plan Assessment * 22 yo M with sepsis 2nd purulent cellulitis from stepping on glass in [place]. Developed fever with swelling and redness of leg prior to arrival * No significant PMH * Antibiotics * Broadened 06/09 - was on ceftriaxone and vancomycin. Now on Zosyn and vancomycin. * Zosyn day 2, vancomycin day 4 * Cultures * Heel culture with Staph aureus and Group A beta Strep * Renal * SCr stable and likely at/near baseline Vancomycin * Goal trough ~15 mcg/mL. Can usually target lower for cellulitis, but would like higher trough for now * Trough level this AM therapeutic at 14.6 mcg/mL. * This was likely drawn close to steady state, but patient may still accumulate further on a q6h interval. * Therefore OK to continue current dose, but will check repeat level tomorrow to ensure levels do not exceed 20 mcg/mL Plan * Continue vancomycin 1250 mg IV q6h * Trough 06/11 @ 0930 Pharmacy will continue to follow and will adjust dose/frequency as necessary. Thank you
--- NOTE | 2017-06-10 09:03 | Family Medicine Progress Note ---
Progress Note Date of Service Jun 10, 2017. Subjective Pt is tolerating IV medications well. Eating, voiding well, denies diarrhea. Denies any new complaints like chest pain, difficulty breathing or abdominal pain. Has had visitors in and out over the day yesterday. ROS See HPI for pertinent positives and negatives. Medications Current Inpatient Medications Medications (Trade) Dose Ordered Sig/Robson Route Start Time Stop Time Status Last Admin Dose Admin Enoxaparin Sodium (Lovenox Inj) 40 mg DAILY@2100 SQ 06/08/17 00:00 07/08/17 00:00 06/09/17 21:34 40 MG Acetaminophen (Tylenol Tab) 650 mg Q4H PRN PO 06/07/17 22:15 07/07/17 22:14 06/10/17 15:33 650 MG Al Hydrox/Mg Hydrox/Simethicone (Maalox Max Susp) 15 ml Q4H PRN PO 06/07/17 22:15 07/07/17 22:14 Magnesium Hydroxide (Milk Of Magnesia Susp) 30 ml Q6H PRN PO 06/07/17 22:15 07/07/17 22:14 Ondansetron HCl (Zofran Inj) 4 mg Q6H PRN IV 06/07/17 22:15 07/07/17 22:14 Lactobacillus Acidophilus (Floranex Tab) 4 tab TIDM PO 06/08/17 08:30 07/08/17 08:29 06/10/17 12:00 4 TAB Miscellaneous Information (Consult) 1 ea UD PRN N/A 06/07/17 22:15 07/07/17 22:14 Ioversol (Optiray 320) 100 ml UD PRN IV 06/07/17 23:00 06/11/17 22:59 Oxycodone HCl (Roxicodone Immediate Rel Tab) 5 mg Q4H PRN PO 06/08/17 00:15 06/22/17 00:14 06/10/17 15:33 5 MG Miscellaneous Information (Consult) 1 ea UD PRN N/A 06/09/17 09:45 07/09/17 09:44 Vancomycin HCl 1250 mg/Sodium Chloride 275 ml @ 125 mls/hr Q6@0400,1000,1600,2200 IV 06/09/17 10:30 06/17/17 21:59 06/10/17 15:32 125 MLS/HR Piperacillin Sod/ Tazobactam Sod 3.375 gm/Dextrose 115 ml @ 28.75 mls/ hr Q8@0000,0800,1600 IV 06/09/17 16:00 06/19/17 15:59 06/10/17 15:32 28.75 MLS/HR Ibuprofen (Motrin Tab) 600 mg QID PRN PO 06/09/17 17:30 07/09/17 17:29 06/10/17 13:03 600 MG Objective Vital Signs Date Time Temp Pulse Resp B/P (MAP) Pulse Ox O2 Delivery O2 Flow Rate FiO2 06/10/17 15:07 36.8 56 16 118/66 (83) 98 Room Air 06/10/17 08:00 Room Air 06/10/17 07:24 36.4 47 14 101/61 (74) 99 Room Air 06/09/17 23:25 Room Air 06/09/17 22:44 36.5 60 14 103/58 (73) 97 Room Air Physical Exam Notes: GENERAL: Awake, alert, well-appearing, in no distress EYES: Normal conjunctiva. Sclera non-icteric. RESPIRATORY: Clear to auscultation. CARDIAC: Regular rate, normal rhythm. Extremities warm and well perfused. Pulses equal. ABDOMEN: Soft, non-distended. No tenderness to palpation. No rebound or guarding. No masses. LOWER EXTREMITIES: Rt calf is erythematous, significantly less swollen and less painful. Not exceeding line of demarcation from first day of admission -- however, not significantly receded since yesterday either. Neurovascularly in tact bilaterally. NEURO: No motor deficits noted. SKIN: No jaundice noted. Laboratory Results 06/10/17 03:39 Red Blood Count 4.04, Mean Corpuscular Volume 92.8, Mean Corpuscular Hemoglobin 30.9, Mean Corpuscular Hemoglobin Concent 33.3, Mean Platelet Volume 11.2, Neutrophils (%) (Auto) 56.2, Lymphocytes (%) (Auto) 24.1, Monocytes (%) (Auto) 16.8, Eosinophils (%) (Auto) 2.3, Basophils (%) (Auto) 0.3, Neutrophils # (Auto ) 4.96, Lymphocytes # (Auto) 2.13, Monocytes # (Auto) 1.48, Eosinophils # (Auto ) 0.20, Basophils # (Auto) 0.03 06/10/17 03:39 Test 06/10/17 03:39 White Blood Count 8.83 K/uL (4.8-10.8) Red Blood Count 4.04 M/uL (4.7-6.1) Hemoglobin 12.5 g/dL (14.0-18.0) Hematocrit 37.5 % (42-52) Mean Corpuscular Volume 92.8 fL (80-100) Mean Corpuscular Hemoglobin 30.9 pg (25-34) Mean Corpuscular Hemoglobin Concent 33.3 g/dl (32-36) Platelet Count 142 K/uL (130-400) Mean Platelet Volume 11.2 fL (7.4-10.4) Neutrophils (%) (Auto) 56.2 % Lymphocytes (%) (Auto) 24.1 % Monocytes (%) (Auto) 16.8 % Eosinophils (%) (Auto) 2.3 % Basophils (%) (Auto) 0.3 % Neutrophils # (Auto) 4.96 K/uL (1.4-6.5) Lymphocytes # (Auto) 2.13 K/uL (1.2-3.4) Monocytes # (Auto) 1.48 K/uL (0.11-0.59) Eosinophils # (Auto) 0.20 K/uL (0-0.5) Basophils # (Auto) 0.03 K/uL (0-0.2) RDW Standard Deviation 41.9 fL (36.4-46.3) RDW Coefficient of Variation 12.3 % (11.5-14.5) Immature Granulocyte % (Auto) 0.3 % Immature Granulocyte # (Auto) 0.03 K/uL (0.00-0.02) Est Creatinine Clear Calc Drug Dose 157.5 ml/min Estimated GFR () 144.0 Estimated GFR (Non- 124.2 Total Bilirubin 0.5 mg/dl (0.2-1) Direct Bilirubin 0.1 mg/dl (0-0.2) Aspartate Amino Transf (AST/SGOT) 37 U/L (15-37) Alanine Aminotransferase (ALT/SGPT) 79 U/L (12-78) Alkaline Phosphatase 76 U/L (45-117) Total Protein 5.8 gm/dl (6.4-8.2) Albumin 2.2 gm/dl (3.4-5.0) Vancomycin Level Trough 14.6 mcg/ml (SEE COMMENT) Assessment and Plan 22 yo male admitted on [id number] for right leg cellulitis s/p stepping on glass in [place] around 05Mar. PMH: None. Right lower extremity cellulitis: - Patient notes unsuccessful initial treatment in [place] with unknown medications. Here, CT and u/s of RLE noted edema but no abscess or DVT. S/p foot I&D here. 10Mar BCx NGTD x 2 and Wound Cx FINAL MSSA staph aureus and GAS. 10Mar started empirically on Ceftriaxone and Vancomycin to cover for staph & strep --> changed to Vanc and zosyn to cover for anaerobe. Tylenol prn and Roxycodone prn, ibuprofen 600mg q6h. Last fever 12Mar, mild. WBC 12 -> 8.8. Vitals stable. Ortho consulted -- no indication for intervention at this time. No s/s compartment syndrome. - Per pharm recs, can consider switch to IV cefepime and clindamycin (anti toxin effect) tomorrow if clinically indicated. On discharge, will do PO Augmentin. Elev AST (62) - resolved 13Mar. Code status: Full code Diet: Regular. DVT prophy: Lovenox. PT/OT: Deferred. Disbo: Admit to med/surg. Spoke at length with pt mother and aunt, discussed treatment, answered all questions. Possible DC tomorrow if clinically indicated. Continued [facility] stay due to: multiple IV medications needed Discharge planning: home Resident Tracking Resident Involvement: Resident Care Provided Care Provided: Adult Hospital Medicine Reviewed: Pt Seen/Exam by Me History right leg swelling and pain better. redness same Constitutional: denies: fever Respiratory: negative: short of breath Cardiovascular: denies chest pain General Appearance: no apparent distress Extremities: other (right leg - redness more brownish. redness in back improving. swelling improving. ) Assessment/Plan Resident Physician Supervision Note: I independently interviewed and examined the patient and verified the kinney history and physical, reviewed labs and image studies, discussed the case with the resident Dr. Bush and agree with the findings and care plan.
[2017-06-10] MEDS: IBUPROFEN 600 MG TAB PO PRN (13:03)
[2017-06-10 15:07] VITALS: BP 118/66; PULSE 56; TEMP 36.8; O2SAT 98
[2017-06-10] MEDS: ENOXAPARIN 40 MG/0.4 ML SYR SQ SCH (21:53)
[2017-06-10 23:04] VITALS: BP 110/65; PULSE 65; TEMP 36.3; O2SAT 98
[2017-06-11] MEDS: OXYCODONE HCL IR 5 MG TAB (IMMEDIATE RELEASE) PO PRN ×2 (02:48→09:11)
[2017-06-11] MEDS: ACETAMINOPHEN 325 MG TAB PO PRN (02:48)
[2017-06-11] MEDS: VANCOMYCIN IV 1,250 MG in SODIUM CHLORIDE 0.9% 250ML 250 ML IV SCH ×2 (04:15→10:43)
[2017-06-11] MEDS: IBUPROFEN 600 MG TAB PO PRN (06:18)
[2017-06-11 07:21] VITALS: BP 121/68; PULSE 50; TEMP 36.9; O2SAT 98
[2017-06-11] MEDS: LACTOBACILLUS ACIDOPHILUS (FLORANEX) TAB PO SCH (09:06)
[2017-06-11] MEDS: PIPERACILL/TAZOBAC IV 3.375 GM in DEXTROSE 5% 100ML IV SCH (09:06)
[2017-06-11] MEDS ORDERED: VANCOMYCIN TROUGH ONE (09:30)
[2017-06-11 10:10] LABS: HEMATOCRIT 38.1 % (42-52); MEAN CELL VOLUME 93.8 fL (80-100); MEAN CORPUSCULAR HGB CONC 34.1 g/dl (32-36); MEAN PLATELET VOLUME 10.9 fL (7.4-10.4); PLATELET COUNT 222 K/uL (130-400); RED CELL DISTRIBUTION WIDTH CV 12.5 % (11.5-14.5); RED CELL DISTRIBUTION WIDTH SD 42.4 fL (36.4-46.3); WHITE BLOOD COUNT 7.95 K/uL (4.8-10.8)
[2017-06-11 10:28] LABS: CREATININE 0.84 mg/dl (0.60-1.40)
[2017-06-11 10:40] LABS: BASO % 0.4 %; BASO ABS # 0.03 K/uL (0-0.2); EOS % 2.1 %; EOS ABS # 0.17 K/uL (0-0.5); IG# 0.09 K/uL (0.00-0.02); LYMPH % 16.2 %; LYMPH ABS # 1.29 K/uL (1.2-3.4); MONO % 12.3 %; MONO ABS # 0.98 K/uL (0.11-0.59); NEUT % 67.9 %; NEUT ABS # 5.39 K/uL (1.4-6.5)
[2017-06-11] MEDS ORDERED: OXYCODONE HCL IR 5 MG TAB (IMMEDIATE RELEASE) PO PRN (11:00)
--- NOTE | 2017-06-11 12:05 | Discharge Instructions ---
Discharge Instructions Date of Service Jun 11, 2017. Admission Reason for Admission: Severe Cellulitis Discharge Discharge Diagnosis / Problem: Cellulitis Discharge Goals Goal(s): Decrease discomfort, Improve function, Improve disease control, Learn about illness, Therapeutic intervention Activity Recommendations Activity Limitations: as noted below Lifting Limitations: gradually increase as tolerated Exercise/Sports Limitations: gradually increase as tolerated May Resume Sexual Activity: when tolerated Shower/Bathe: no limitations Driving or Machine Use: no limitations . Instructions / Follow-Up Instructions / Follow-Up You were admitted due to severe cellulitis infection of your right lower leg. We have treated you with intravenous antibiotics here (Vancomycin and Zosyn). Your skin infection has improved, but still requires tablet form, so we are sending you with a script for cephalexin, please take for five days total, 1 tablet 4times per day. Please be seen by a medical provider in 1-3 days to reassess your leg, to make sure your pulses are in tact and your sensation is normal in your leg. Try to keep your foot elevated as much as possible in the next week or so. Continue to take ibuprofen and tylenol -- you can alternate each every 2 hours - - but do NOT exceed maximum daily dose of either medication, please read instructions on the packaging. This will help with pain, but will not get rid of it completely. Give your body time to heal. Please also see me in the [facility] clinic (across the street from this hospital) next week. Our office should be reaching out to you to make that appointment. Please be sure to eat a good diet high in green leafy vegetables, and drink plenty of water to stay well hydrated. Rest. Abstain from alcohol. Be well A Rachelle Current Hospital Diet Patient's current hospital diet: Regular Diet Discharge Diet Recommended Diet: Regular Diet Pending Studies Studies pending at discharge: no Medical Emergencies . Who to Call and When: Medical Emergencies: If at any time you feel your situation is an emergency, please call 911 immediately. . Non-Emergent Contact Non-Emergency issues call your: Primary Care Provider Call Non-Emergent contact if: temperature is above 101, your pain is worsening , wound has increased drainage . . "Provider Documentation" section prepared by Magdalena Bush. . Leather Parts Matcher Recommendations Leather Parts Matcher Recommendations: CONTINUE ELEVATION RLE CONTINUE ANTIBIOTICS RECOMMEND BY PRIMARY SERVICE MONITOR FOR INCREASED REDNESS, SWELLING, FEVER, CHILLS, DRAINAGE. CAN FOLLOW UP WITH ORTHO PRN. DOES NOT NEED SCHEDULED FOLLOW UP. Resident Tracking Resident Involvement: Resident Care Provided Care Provided: Adult [facility]
[2017-06-11 12:22] VITALS: BP 121/68; PULSE 50; TEMP 36.9; O2SAT 98
--- NOTE | 2017-06-11 20:45 | Discharge Summary ---
Discharge Summary Date of Service Jun 11, 2017. Discharge Summary Admission Date: Jun 07, 2017 at 22:17 Discharge Date: Jun 11, 2017 Discharge Disposition: Home Principal Diagnosis: Cellulitis Medication Reconciliation Medication Profile: No Active Prescriptions or Reported Meds Discharge Exam Pt resting comfortably in bed this morning, elevating leg on pillow. Mother and aunt at bedside. Denies any new complaints, tolerating antibiotics well. Discussed discharge plans for today -- pt and mother discussing going back home to [place] for the remainder of the week and weekend. ROS See HPI for pertinent positives and negatives. GENERAL: Awake, alert, well-appearing, in no distress EYES: Normal conjunctiva. Sclera non-icteric. RESPIRATORY: Clear to auscultation. CARDIAC: Regular rate, normal rhythm. Extremities warm and well perfused. Pulses equal. ABDOMEN: Soft, non-distended. No tenderness to palpation. No rebound or guarding. No masses. LOWER EXTREMITIES: Rt calf is erythematous, significantly less swollen and less painful. Not exceeding line of demarcation from first day of admission -- improved. Neurovascularly in tact bilaterally. NEURO: No motor deficits noted. SKIN: No jaundice noted. Hospital Course Mr. Cobos was admitted for severe cellulitis after sustaining trauma to his plantar foot while vacationing in [place]. While there received some anntibiotic and steroids, upon returning to [place] pt came immediately to ED. While here, cultures grew staph and Grp A Strep, sensitive to cephalexin. Treated for 3 days on IV Vanc and Zosyn, sent home with PO Keflex. To be seen by me in my office next week. Instructed to follow up with PCP in [place] in 1-3 days. Total Time Spent: Greater than 30 minutes This includes examination of the patient, discharge planning, medication reconciliation, and communication with other providers. Discharge Instructions Please refer to the electronic Patient Visit Report (Discharge Instructions) for additional information. Additional Copies To Magdalena Bush M.D. Resident Tracking Resident Involvement: Resident Care Provided Care Provided: Adult Hospital Medicine Reviewed: Pt Seen/Exam by Me History redness and swelling in right leg - better Constitutional: denies: fever General Appearance: no apparent distress Respiratory: lungs clear, no respiratory distress Cardiovascular: regular rate, rhythm Neurologic/Psychiatric: alert, oriented x 3 Skin Characteristics: other (right leg swelling and redness better) Assessment/Plan Resident Physician Supervision Note: I independently interviewed and examined the patient and verified the kinney history and physical, reviewed labs and image studies, discussed the case with the resident Dr. Bush and agree with the findings and care plan. Time spent in discharge 35 min
--- NOTE | 2017-06-12 06:30 | EDITING REQUIRED CODING QUERY ---
SEPSIS To promote full compliance with coding requirements relating to patient care, physician participation is requested in all cases of burrito maker uncertainty. Please assist us with the question(s) below: In responding to this query, please exercise your independent professional judgment. The fact that a question is asked does not imply that any particular answer is desired or expected. We appreciate your clarification on this issue. Coding Question: Sepsis was listed on the H&P; please clarify below to the best of your knowledge. Thank you so much for your help! Have a great day! () Sepsis, present on admission (x) Sepsis, ruled-out () Other, patient has:
== END 2017-06-11 13:33 | disposition home or self-care (01) | DRG 603 ==
LOC: C.EDB 20:00 → C.MSW 22:17 → EDBEDREQSVC 22:29 → EDBEDREQ 22:29 → ENRESERV 23:08
PROVIDERS: ADMIT Internal Medicine; ATTEND Family Medicine
PROC: 0H9MXZX Drainage of Right Foot Skin, External Approach, Diagnostic (ICD-10-PCS; principal; 2017-06-07)
DX: L03.115 Cellulitis of right lower limb (principal); B95.61 Methicillin susceptible Staphylococcus aureus infection as the cause of diseases classified elsewhere; F17.200 Nicotine dependence, unspecified, uncomplicated